=== PATIENT | female | born 1950 | race Caucasian/White ===

== ENCOUNTER 2018-12-20 05:44 | Outpatient (CLI) | payer MEDICARE, OTHER ==
[~2018-12-20] VITALS: Ht 165.1 cm; Wt 72.6 kg
[2018-12-20] MEDS ORDERED: METO-387 PO (12:29)
[2018-12-20] MEDS ORDERED: ROSU10TA28 PO (12:29)
[2018-12-20] MEDS ORDERED: ASPI-586 PO (12:29)
== END 2018-12-20 12:33 | disposition home or self-care (01) ==
LOC: PREOP 05:44
PROVIDERS: ATTEND Obstetrics & Gynecology
DX: Z01.818 Encounter for other preprocedural examination (principal)

== ENCOUNTER 2018-12-25 06:15 | Day surgery (SDC) | payer MEDICARE, OTHER ==
[2018-12-25] VITALS (7 sets, daily range): BP systolic 115–134; BP diastolic 70–91
[~2018-12-25] VITALS: Ht 165.1 cm; Wt 72.6 kg
[~2018-12-25 06:15] MED LIST: ASPI-586 PO; METO-387 PO; ROSU10TA28 PO
[2018-12-25] MEDS ORDERED: LACTATED RINGERS 1,000 ML IV PRN (06:21)
[2018-12-25] MEDS ORDERED: metroNIDAZOLE 500MG/100ML IVPB 100 ML IV ONE (06:30)
[2018-12-25] MEDS ORDERED: proPOfol 200 MG/20 ML (DIPRIVAN) VIAL IV ONE (06:45)
[2018-12-25] MEDS ORDERED: MIDAZOLAM 2 MG/2 ML (VERSED) VIAL ONE (06:45)
[2018-12-25] MEDS ORDERED: SEVOFLURANE (ULTANE) 15 ML INHAL SOLN ONE (06:45)
[2018-12-25] MEDS ORDERED: DEXAMETHASONE 10 MG/ML (DECADRON) 1 ML VIAL ONE (06:45)
[2018-12-25] MEDS ORDERED: LIDOCAINE PF 2% 5 ML (XYLOCAINE) VIAL ONE (06:45)
[2018-12-25] MEDS ORDERED: fentaNYL INJECTION 100 MCG/2 ML AMP ONE (06:45)
[2018-12-25] MEDS ORDERED: CATHETER FLUSH 10 ML SYR IV PRN (06:45)
[2018-12-25] MEDS ORDERED: ONDANSETRON 4 MG/2 ML (SDV) Z0FRAN ONE (06:45)
[2018-12-25] MEDS ORDERED: BUP/EPI 0.25% 1:200,000 (MARCAINE) 10 ML VIAL IJ ONE (07:20)
[2018-12-25] MEDS: ceFAZolin INJECTION 1,000 MG in WATER (STERILE) FOR INJECTION 10 ML IV ONE ×2 (07:54→08:04)
[2018-12-25] MEDS ORDERED: ESTROGENS CONJ. CREAM 30 GM (PREMARIN) TUBE ONE (08:21)
--- NOTE | 2018-12-25 08:51 | Operative Report ---
Operative Report Date of Procedure/Surgery Dec 25, 2018 Surgeon (s) MERA BROWN DO [employer] Member (s): Kimberly Patino, MS III Post-Operative Diagnosis Atrophic endometrium, cervical stenosis, vaginal lesion, vaginal atrophy Procedure Performed hysteroscopy, dilation and curettage, vaginal lesion biopsy Description of Procedure Anesthesia Type: General Estimated blood loss (mL): minimal Specimen(s) collected/removed endometrial curetting, vaginal biopsy Description of the Procedure With informed consent the patient was taken to the operating room where general anesthesia was found to be adequate in the dorsolithotomy position. She was prepped and draped in the usual sterile fashion. The bladder was drained with a catheter with clear, yellow urine. A speculum was placed in the vaginal and the cervix was grasped with a tenaculum. Then the cervix, which had previously been noted to be very stenotic, and an incision was made in the cervical os. There was cervical mucus noted, ensuring that there was the os rather than a false passage. The cervix was then dilated with jacob dilators to allow insertion of the hysteroscope. A hysteroscope was done revealing no abnormal pathology. A gentle curette was done and the tissue was sent for pathology. I then did a hysteroscope of the vagina and revealed that the tissue was irregular and atrophic. I took a small, 4 mm, biopsy of the area. And this was sent for pathology. A figure of eight stitch of 3-0 Vicryl to control bleeding. The instruments were then removed from the cervix. Vaginal estrogen was placed in the vagina and the remainder was sent with the patient The patient was awakened and taken to recovery in a stable condition. Findings of the Procedure stenotic cervix, atrophic endometrium, irregular patch of vaginal epithelium (1x1cm) underneath the urethra in the vagina. There was no raised lesion and no mass noted. But the tissue felt irregular and rough with some smooth, silky areas. Not like normal rugated tissue. Allergies and Home Medications Allergies Coded Allergies: No Known Drug Allergies (Unverified , 12/20/18) Home Medications Acetaminophen 500 Mg Tablet, 1,000 MG PO TID Prescribed by: MERA BROWN on 12/25/18 0853 Aspirin 81 Mg Tablet.dr, 81 MG PO HS, (Reported) Ibuprofen 600 Mg Tablet, 600 MG PO Q6H PRN for PAIN-MILD Prescribed by: MERA BROWN on 12/25/18 0853 Metoprolol Succinate 25 Mg Tab.er.24h, 25 MG PO HS, (Reported) Rosuvastatin Calcium 10 Mg Tablet, 10 MG PO HS, (Reported) Patient Home Medication List Home Medication List Reviewed: Yes MERA BROWN DO Dec 25, 2018 08:51
[2018-12-25] MEDS ORDERED: ACET-2267 PO (08:53)
[2018-12-25] MEDS ORDERED: IBUP-1773 PO (08:53)
--- NOTE | 2018-12-25 08:57 | Discharge Inst-Women's Service ---
Discharge Inst-Women's Serv Depart Medication/Instructions New, Converted or Re-Newed RX: Transmitted to Pharmacy Final Diagnosis vaginal atrophy vaginal lesion post menopausal bleeding atrophic endometrium Problems Reviewed?: Yes Consults/Follow Up Additional Follow Up: Yes (1-2 weeks) Activity Activity: Activity as Tolerated Driving Instructions: No Driving for 24 Hours NO SMOKING: NO SMOKING Nothing Inside Vagina: No Douching, No Jackpot, No Tampons Diet Discharge Diet: No Restrictions Symptoms to Report to : Swelling Increased, Bleeding Excessive, Constipation(Persistant), Vaginal Bleeding Increase, Cramps in Feet or Legs, Vaginal Discharge Foul For Any Problems or Questions: Contact Your Physician Skin/Wound Care Bathing Instructions: MERA Melvin DO Dec 25, 2018 08:56
[2018-12-25] MEDS ORDERED: fentaNYL INJECTION 100 MCG/2 ML AMP IVP ONE (09:00)
[2018-12-25] MEDS ORDERED: morphine INJ 10 MG/ML 1ML (SYR OR VIAL) IVP ONE (09:00)
[2018-12-25] MEDS ORDERED: ONDANSETRON 4 MG/2 ML (SDV) Z0FRAN IVP PRN (09:00)
[2018-12-25] MEDS ORDERED: KETOROLAC 30 MG/ML VIAL IV ONE (09:45)
--- NOTE | 2018-12-25 09:52 | Anesthesia-General Post-Op ---
General Patient Condition Mental Status/LOC: Same as Preop Cardiovascular: Satisfactory Nausea/Vomiting: Absent Respiratory: Satisfactory Pain: Controlled Complications: Absent Post Op Complications Complications None Follow Up Care/Instructions Patient Instructions None needed. Anesthesia/Patient Condition Patient Condition Patient is doing well, no complaints, stable vital signs, no apparent adverse anesthesia problems. No complications reported per nursing. MILADY MERCHANT CRNA Dec 25, 2018 09:52
== END 2018-12-25 10:00 | disposition home or self-care (01) ==
LOC: SDC 06:15
PROVIDERS: ATTEND Obstetrics & Gynecology
DX: N84.0 Polyp of corpus uteri (principal); N95.2 Postmenopausal atrophic vaginitis; N88.2 Stricture and stenosis of cervix uteri; E78.5 Hyperlipidemia, unspecified; K21.9 Gastro-esophageal reflux disease without esophagitis; I10 Essential (primary) hypertension; M19.90 Unspecified osteoarthritis, unspecified site; Z79.82 Long term (current) use of aspirin; Z79.899 Other long term (current) drug therapy; Z98.51 Tubal ligation status; Z82.49 Family history of ischemic heart disease and other diseases of the circulatory system; Z80.7 Family history of other malignant neoplasms of lymphoid, hematopoietic and related tissues; Z83.3 Family history of diabetes mellitus; Z80.0 Family history of malignant neoplasm of digestive organs; Z82.62 Family history of osteoporosis
CPT/HCPCS: 87081; 88305

== ENCOUNTER 2022-11-21 09:58 | Outpatient (CLI) | payer MEDICARE, OTHER ==
[~2022-11-21 09:58] MED LIST changes: +ACET-2267 PO; +IBUP-1773 PO; -METO-387 PO; +MTP25TSR PO
== END 2022-11-21 10:25 ==
LOC: SLEEP 09:58
PROVIDERS: ATTEND Otolaryngology Otolaryngology/Facial Plastic Surgery
DX: G47.33 Obstructive sleep apnea (adult) (pediatric) (principal)
CPT/HCPCS: G0399